=== PATIENT | male | born 1960 | race Caucasian/White ===

== ENCOUNTER 2017-03-17 14:37 | Emergency (ER) | payer OTHER ==
[~2017-03-17] VITALS: Ht 185.4 cm; Wt 89.0 kg
[2017-03-17 14:59] VITALS: Ht 185.4 cm; Wt 89.0 kg
[2017-03-17 16:18] VITALS: BP 126/87; PULSE 67; RESP 16; TEMP 98
[2017-03-17 16:18] LABS: BASOPHIL # 0.1 10^3/ul (0.0-0.1); BASOPHILS % 0.9 % (0.0-2.0); EOSINOPHILS # 0.1 10^3/ul (0.0-0.5); HEMATOCRIT 38.1 % (42.0-52.0); HEMOGLOBIN 13.4 g/dl (14.0-18.0); LYMPHOCYTES # 1.5 10^3/ul (0.8-2.9); LYMPHOCYTES % 22.6 % (15.0-51.0); MEAN CORPUSCULAR HEMOGLOBIN 32.6 pg (29.0-33.0); MEAN CORPUSCULAR HGB CONC 35.2 g/dl (32.0-37.0); MEAN CORPUSCULAR VOLUME 92.7 fl (82.0-101.0); MEAN PLATELET VOLUME 9.2 fl (7.4-10.4); MONOCYTE # 0.6 10^3/ul (0.3-0.9); MONOCYTES % 8.8 % (0.0-11.0); NEUTROPHILS % 66.4 % (39.0-77.0); PLATELET COUNT 212 10^3/UL (140-415); RED BLOOD COUNT 4.11 10^6/ul (4.70-6.10); RED CELL DISTRIBUTION WIDTH 11.9 % (11.5-14.5); WHITE BLOOD COUNT 6.8 10^3/ul (4.8-10.8)
--- NOTE | 2017-03-17 16:22 | RADRPT ---
PROCEDURE: XR Chest. CLINICAL INDICATION: chest pain TECHNIQUE: Single frontal view of the chest was obtained COMPARISON: None FINDINGS: The heart and mediastinum are within normal limits. The lungs are clear. There is no pleural effusion or pneumothorax. RPTAT: AA IMPRESSION: No acute disease. .Cj Flannery MD, Date Time Electronically viewed and signed by .Cj Flannery MD, on 03/17/2017 16:22 .S/
[2017-03-17 16:37] LABS: ANION GAP 12 (8-16); BLOOD UREA NITROGEN 12 mg/dl (7-20); CALCIUM 9.2 mg/dl (8.4-10.2); CARBON DIOXIDE 24 mmol/L (21-31); CHLORIDE 107 mmol/L (97-110); GLUCOSE 120 mg/dl (70-220); SODIUM 139 mmol/L (135-144)
[2017-03-17 16:51] LABS: TROPONIN-I < 0.012 ng/ml (0.00-0.12)
[2017-03-17] MEDS ORDERED: ASPI-664 PO (17:05)
[2017-03-17] MEDS ORDERED: BENZ1TAB7 PO (17:05)
[2017-03-17] MEDS ORDERED: ATOR20TA38 PO (17:06)
[2017-03-17] MEDS ORDERED: LISI10TA2 PO (17:06)
[2017-03-17] MEDS ORDERED: PREG150C PO (17:07)
[2017-03-17] MEDS ORDERED: LORA1TAB PO (17:09)
--- NOTE | 2017-03-17 17:09 | ERD ---
ER Documentation Chief Complaint Date/Time DATE: 03/17/17 TIME: 17:04 Chief Complaint states chest tightness sob s/p feet getting in unknown chemicals HPI This is a 56-year-old male who presents to the emergency room complaining of chest pain and shortness of breath. The patient has an odd affect. He states that he was walking barefoot and may have stepped in some chemicals. He is not sure how he knows there are chemicals but he knows their chemicals. He states that he has burning to the bilateral lower aspects and plantar surface of his feet. He states that because of this he is started to have chest pain that is pressure-like with associated shortness of breath. He states that this chest pain and shortness of breath is similar to episodes in the past when he has had anxiety or panic attacks. He states this feels somewhat similar. ROS All systems reviewed and are negative except as per history of present illness. Allergies Allergies: Coded Allergies: No Known Allergy (Unverified , 03/17/17) PMhx/Soc Medical and Surgical Hx: pt denies Surgical Hx Hx Cardiac Disorders: Yes (htn hld) Hx Alcohol Use: No Hx Substance Use: No Hx Tobacco Use: No Smoking Status: Never smoker FmHx Family History: No diabetes Physical Exam Vitals Vital Signs Date Time Temp Pulse Resp B/P Pulse Ox O2 Delivery O2 Flow Rate FiO2 03/17/17 16:18 98.0 67 16 126/87 100 Room Air 03/17/17 14:59 98.4 66 18 123/76 98 Physical Exam General: Extremely anxious, odd affect Head: Normocephalic, atraumatic Eyes: Pupils equally reactive, EOM intact ENT: Moist mucous membranes Neck: Supple, no lymphadenopathy Respiratory: Lungs clear bilaterally, no distress Cardiovascular: RRR, no murmurs, rubs, or gallops Abdominal: Soft, non-tender, non-distended, no peritoneal signs : Deferred MSK: No edema, no unilateral swelling, 5/5 strength Neurologic: Alert and oriented, moving all extremities, normal speech, no focal weakness, no cerebellar signs Skin: No rash, no evidence of chemical exposure to inspection of the plantar surface of the bilateral feet. No excoriations erythema warmth or chemical material on the feet Psych: Anxiety Result Diagram: 03/17/17 1610 03/17/17 1610 Results 24 hrs Laboratory Tests Test 03/17/17 16:10 White Blood Count 6.810^3/ul Red Blood Count 4.1110^6/ul Hemoglobin 13.4g/dl Hematocrit 38.1% Mean Corpuscular Volume 92.7fl Mean Corpuscular Hemoglobin 32.6pg Mean Corpuscular Hemoglobin Concent 35.2g/dl Red Cell Distribution Width 11.9% Platelet Count 30281^3/UL Mean Platelet Volume 9.2fl Neutrophils % 66.4% Lymphocytes % 22.6% Monocytes % 8.8% Eosinophils % 1.0% Basophils % 0.9% Nucleated Red Blood Cells % 0.0/100WBC Neutrophils # (Manual) 4.510^3/ul Lymphocytes # 1.510^3/ul Monocytes # 0.610^3/ul Eosinophils # 0.110^3/ul Basophils # 0.110^3/ul Nucleated Red Blood Cells # 0.010^3/ul Sodium Level 139mmol/L Potassium Level 4.0mmol/L Chloride Level 107mmol/L Carbon Dioxide Level 24mmol/L Anion Gap 12 Blood Urea Nitrogen 12mg/dl Creatinine 1.10mg/dl Glucose Level 120mg/dl Calcium Level 9.2mg/dl Troponin I < 0.012ng/ml Procedures/MDM EKG, MONITORS, & DIAGNOSTIC IMAGING: EKG: I reviewed and interpreted a 12-lead EKG. Rhythm: Normal sinus rhythm Ectopy: None Intervals: No abnormalities ST segments: No elevations or depressions T waves: No contiguous inversions Chest x-ray: I reviewed and interpreted a 1 view of the chest Mediastinum: No enlargement Cardiac silhouette: No cardiomegaly Airspace: Clear lung phillips bilaterally without evidence of pneumothorax Bones: No evidence of fracture LAB INTERPRETATION: Negative troponin MEDICAL DECISION MAKING: The patient's history, physical exam and clinical presentation is consistent with anxiety reaction. I do not believe his chest pain is related to cardiac etiology. He has had similar symptoms in the past related to anxiety. However the patient is a 56-year-old male with benefit from EKG and troponin. Based on the patient's clinical exam and history and risk factors, I have a much lower clinical concern for pulmonary embolism, acute aortic dissection, pneumothorax, pneumonia, cardiac tamponade HEART Score: Less than 3 MACE Rate: Less than 1.7% Shared Decision Making: We had a conversation regarding risk stratification, MACE rate, and the risks, benefits, alternatives of disposition planning options. Disposition planning: Given very low concern for cardiac etiology no indication for hospitalization or serial enzymes ER COURSE: The patient is convinced that he was exposed to chemicals to the plantar surface of his bilateral feet. However on inspection the patient has no evidence of chemical dermatitis or exposure. I believe this is a delusion of the patient. He exhibits extreme anxiety and possibly underlying psychiatric illness. No evidence of acute psychosis that warrants hospitalization. The patient was allowed to soak his feet in water and states that he feels much better. I kept the patient and/or family informed of laboratory and diagnostic imaging results throughout the emergency room course. DISPOSITION PLAN: We discussed follow up with the patient's primary care doctor within 24 to 48 hours as needed. We also discussed return to the emergency room for worsening symptoms or worsening condition. Outpatient referral: [None required] Departure Diagnosis: Primary Impression: Chest pain Chest pain type: unspecified Qualified Code: R07.9 - Chest pain, unspecified type Additional Impressions: Delusion Anxiety reaction Condition: Stable CHRISTOPHER LEIJA MD Mar 17, 2017 17:09
[2017-03-17] MEDS ORDERED: QUET300T18 PO (17:10)
[2017-03-17] MEDS ORDERED: ZOLP12.54 PO (17:11)
[2017-03-17] MEDS ORDERED: MIRT30TA5 PO (17:12)
== END 2017-03-17 17:25 | disposition home or self-care (01) ==
LOC: E/R 14:37
DX: R07.89 Other chest pain (principal); F22 Delusional disorders; F41.1 Generalized anxiety disorder; I10 Essential (primary) hypertension
CPT/HCPCS: 36415; 71010; 80048; 84484; 85025; 93005; Z7502